=== PATIENT | male | born 1950 | race Caucasian/White ===

== ENCOUNTER → 2018-05-30 | Outpatient (CLI) | payer MEDICARE, OTHER ==
[~2018-05-30] MED LIST: BAYER CHEWABLE81 MG PO; CARDIZEM CD 18180 M3; COUMADIN7.5 MG PO; DILTIAZEM 24HR120 M2 PO; ENALAPRIL MALE2.5 M1; ENALAPRIL MALEA10 M1 PO; ENOXAPARIN100 MG/1 M SQ; LIPITOR 20 MG T20 M1 PO; LIPITOR20 MG; LIPITOR20 MG PO; PRAVACHOL20 MG PO
[2018-05-30 11:39] LABS: CREATININE 0.9 mg/dL (0.6-1.3)
== END ==
LOC: M.LAB 11:00 → M.CT 11:30
PROVIDERS: Nurse Practitioner Family
DX: K76.0 Fatty (change of) liver, not elsewhere classified (principal); J98.11 Atelectasis; K59.00 Constipation, unspecified; I10 Essential (primary) hypertension; I48.91 Unspecified atrial fibrillation; E78.5 Hyperlipidemia, unspecified; Z90.81 Acquired absence of spleen

== ENCOUNTER 2018-08-23 12:26 | Emergency (ER) | payer MEDICARE, OTHER ==
[~2018-08-23] VITALS: Ht 175.3 cm; Wt 108.9 kg
[~2018-08-23 12:26] MED LIST changes: -PRAVACHOL20 MG PO
[2018-08-23 12:49] VITALS: BP 121/73
[2018-08-23] MEDS ORDERED: PRAVACHOL20 MG PO (12:55)
== END 2018-08-23 13:57 | disposition home or self-care (01) ==
LOC: M.ERS 12:26
DX: S51.012A Laceration without foreign body of left elbow, initial encounter (principal); S50.02XA Contusion of left elbow, initial encounter; I10 Essential (primary) hypertension; I48.91 Unspecified atrial fibrillation; E78.5 Hyperlipidemia, unspecified; Z90.49 Acquired absence of other specified parts of digestive tract; Z87.891 Personal history of nicotine dependence; W00.0XXA Fall on same level due to ice and snow, initial encounter; Y93.89 Activity, other specified; Y92.89 Other specified places as the place of occurrence of the external cause; Y99.8 Other external cause status

== ENCOUNTER → 2019-04-12 | Outpatient (CLI) | payer MEDICARE, OTHER ==
[~2019-04-12] MED LIST changes: +PRAVACHOL20 MG PO
== END ==
LOC: M.ULTRA 08:30
DX: I82.432 Acute embolism and thrombosis of left popliteal vein (principal); Z86.718 Personal history of other venous thrombosis and embolism

== ENCOUNTER → 2020-11-19 | Outpatient (CLI) | payer MEDICARE, OTHER | LOC: M.LAB 07:24 | PROVIDERS: ATTEND Internal Medicine Gastroenterology | DX: Z20.822 Contact with and (suspected) exposure to COVID-19 (principal) ==

== ENCOUNTER → 2020-11-19 | Outpatient (CLI) | payer MEDICARE, OTHER ==
[2020-11-19 09:32] LABS: INR 1.1; PROTIME 11.9 Seconds (9.20-11.50)
== END ==
LOC: M.LAB 11-18 18:05
PROVIDERS: ATTEND Anesthesiology
DX: R79.1 Abnormal coagulation profile (principal)